=== PATIENT | male | born 1990 | race Caucasian/White ===

== ENCOUNTER 2019-05-18 10:27 | Inpatient (IN) | payer MEDICAID, OTHER, SELFPAY ==
[~2019-05-18] VITALS: Ht 185.4 cm; Wt 111.4 kg
[2019-05-18 11:30] LABS: HEMATOCRIT 49.6 % (42.0-52.0); HEMOGLOBIN 16.9 g/dl (13.5-17.5); MEAN CORPUSCULAR HEMOGLOBIN 29.1 pg (27.0-33.0); MEAN CORPUSCULAR HGB CONC 34.1 g/dl (32.0-36.5); MEAN CORPUSCULAR VOLUME 85.5 fl (80.0-96.0); PLATELET COUNT, AUTOMATED 305 10^3/uL (150-450); WHITE BLOOD COUNT 9.4 10^3/uL (4.0-10.0)
[2019-05-18 11:57] LABS: AMPHETAMINES LEVEL URINE NEGATIVE (NEGATIVE); BARBITURATES URINE NEGATIVE (NEGATIVE); BENZODIAZEPINES URINE NEGATIVE (NEGATIVE); CANNABINOIDS URINE NEGATIVE (NEGATIVE); COCAINE METABOLITE URINE NEGATIVE (NEGATIVE); METHADONE URINE NEGATIVE (NEGATIVE); OPIATES URINE NEGATIVE (NEGATIVE); PHENCYCLIDINE URINE NEGATIVE (NEGATIVE)
[2019-05-18 12:17] LABS: ACETAMINOPHEN LEVEL < 2.0 UG/ML (10.0-30.0); ALBUMIN 4.7 GM/DL (3.2-5.2); ALT/SGPT 25 U/L (12-78); BILIRUBIN,DIRECT 0.2 MG/DL (0.0-0.2); BILIRUBIN,TOTAL 1.2 MG/DL (0.2-1.0); BLOOD UREA NITROGEN 13 MG/DL (7-18); CALCIUM LEVEL 9.6 MG/DL (8.5-10.1); CARBON DIOXIDE LEVEL 27 MEQ/L (21-32); CHLORIDE LEVEL 105 MEQ/L (98-107); CREATININE FOR GFR 0.83 MG/DL (0.70-1.30); ETHYL ALCOHOL (ETHANOL) < 0.003 % (0.000-0.010); GLOMERULAR FILTRATION RATE > 60.0 (>60); GLUCOSE, FASTING 99 MG/DL (70-100); POTASSIUM SERUM 4.1 MEQ/L (3.5-5.1); SALICYLATE LEVEL 2.5 MG/DL (5.0-30.0); SODIUM LEVEL 139 MEQ/L (136-145); THYROID STIMULATING HORMONE 0.853 uIU/ML (0.358-3.740); TOTAL PROTEIN 7.7 GM/DL (6.4-8.2)
[2019-05-19] MEDS ORDERED: traZODone 50 MG TAB PO PRN (16:45)
[2019-05-19] MEDS ORDERED: MOM 30ML SUSPENSION UDC PO PRN (16:45)
[2019-05-19] MEDS ORDERED: ACETAMINOPHEN TAB 650MG DOSE (2X325MG) PO PRN (16:45)
[2019-05-19] MEDS ORDERED: MAALOX 30 ML SUSP *UDC PO PRN (16:45)
--- NOTE | 2019-05-19 16:57 | ECGEPIP ---
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
[2019-05-19] MEDS: NICOTINE 21MG/24HR 1 EA TRANSDERMAL TD SCH (18:24)
[2019-05-20 07:09] VITALS: BP 121/77
[2019-05-20] MEDS: NICOTINE 21MG/24HR 1 EA TRANSDERMAL TD SCH (08:50)
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
[2019-05-20 17:23] VITALS: BP 116/71
[2019-05-20] MEDS: VENLAFAXINE **XR** 37.5 MG CAPSULE PO SCH (17:35)
--- NOTE | 2019-05-20 19:14 | HPEPDOC ---
General Date of Admission May 19, 2019 at 16:33 Date of Service: May 20, 2019 Chief Complaint The patient is a 28-year-old male admitted with a reason for visit of Unspecified Depressive Disorder. Source: Patient Exam Limitations: No limitations Timing/Duration: Unsure Severity: Mild Associated Symptoms: Unobtainable History of Present Illness This is a 28-year-old male who has been admitted to the inpatient mental health unit for depression. This sba underwriter's conducting a medical evaluation. Patient denies any medical problems. He does have a history of chronic intermittent diarrhea accompanied by bloating. At times he does have blood with his stools. He has had hemorrhoids in the past. An anal fissure in the past. He does not have any nausea, vomiting. He also does not have any indigestion or reflux symp toms. Home Medications No Active Prescriptions or Reported Meds Allergies Coded Allergies: No Known Drug Allergies (Verified Allergy, Unknown, 05/18/19) Past Medical History Medical History Gastroesophageal reflux disease, arthritis Surgical History Arthroscopic knee surgery Family History Significant Family History: Diabetes Also arthritis, likely rheumatoid, in multiple family members Social History * Smoker: current smoker Alcohol: Denies Drugs: prescription drugs (Vicodin) Psychosocial History: Depression Works in [employer] Review of Systems Other systems 10 system review is otherwise negative except as stated in the HPI. Physical Examination General Exam: Positive: Alert, Cooperative Eye Exam: Positive: PERRLA, Conjunctiva & lids normal ENT Exam: Positive: Atraumatic, Mucous membr. moist/pink, Pharynx Normal, Nares Patent, Other ENT (patient has a tongue piercing) Neck Exam: Positive: Supple; Negative: JVD, thyromegaly Chest Exam: Positive: Clear to auscultation Heart Exam: Positive: Rate Normal, Regular Rhythm, Normal S1, Normal S2; Negative: Murmurs, Rubs Abdomen Exam: Positive: Normal bowel sounds Extremity Exam: Positive: Normal pulses; Negative: Clubbing, Cyanosis, Edema Skin Exam: Positive: Nl turgor and temperature Neuro Exam: Positive: Normal Gait, Normal Speech, Cranial Nerves 3-12 NL, Reflexes 2+ Psych Exam: Positive: Oriented x 3 (cooperative) Vital Signs Vital Signs Date Time Temp Pulse Resp B/P (MAP) Pulse Ox O2 Delivery O2 Flow Rate FiO2 05/20/19 17:23 99.0 80 16 116/71 (86) 05/19/19 15:56 100 Room Air Assessment/Plan This is a 28-year-old male admitted to the mental health unit for depression. He also has underlying history of substance abuse in the form of Vicodin. Pro- medical standpoint. He has had GERD in the past and has intermittent episodes of diarrhea with blood to his stools. I will treat him with a proton inhibitor. We also suggested at discharge that he be connected with a primary care provider for referral to a dredge operator for evaluation by colonoscopy. Otherwise, there are no current acute clinical concerns and we will sign off for now. Please do not hesitate to contact us should acute issues arise. Plan / VTE VTE Prophylaxis Ordered?: No (the patient is fully independently ambulatory) Plan Diet: Continue Current Activity: Continue Current Anticipated Discharge: Home ZABRINA SANCHEZ MD May 20, 2019 19:14
[2019-05-21 06:47] VITALS: BP 125/60
[2019-05-21] MEDS: VENLAFAXINE **XR** 37.5 MG CAPSULE PO SCH (08:24)
[2019-05-21] MEDS: PANTOPRAZOLE 40MG TAB (PROTONIX) PO SCH (08:24)
[2019-05-21] MEDS: NICOTINE 21MG/24HR 1 EA TRANSDERMAL TD SCH (08:25)
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
[2019-05-21 18:09] VITALS: BP 133/66
[2019-05-21] MEDS: RAMELTEON 8 MG TAB (ROZEREM) PO PRN (20:50)
[2019-05-22 06:06] VITALS: BP 119/78
[2019-05-22] MEDS: VENLAFAXINE **XR** 37.5 MG CAPSULE PO SCH (08:33)
[2019-05-22] MEDS: PANTOPRAZOLE 40MG TAB (PROTONIX) PO SCH (08:33)
[2019-05-22] MEDS: NICOTINE 21MG/24HR 1 EA TRANSDERMAL TD SCH (08:33)
[2019-05-22 09:59] VITALS: BP 119/78
[2019-05-22 16:20] VITALS: BP 135/67
[2019-05-22 16:21] VITALS: BP 135/67
[2019-05-22] MEDS: RAMELTEON 8 MG TAB (ROZEREM) PO PRN (20:30)
--- NOTE | 2019-05-22 21:42 | MHIPN ---
DATE: 05/22/2019 The patient today states, "I am doing a lot better." He is denying suicidal ideation. MENTAL STATUS EXAMINATION: This patient is alert and oriented times three. He is verbally spontaneous. No formal thought disorder noted. Eye contact is good. Mood is "a lot better." Affect is full range and appropriate. He is not psychotic, suicidal or homicidal. Concentration and memory are good. Insight and judgment fair. DIAGNOSES: 1. Unspecified trauma, stressor related disorder. 2. Rule out substance induced. 3. Opiate use disorder, severe. 4. Alcohol use disorder, unspecified. 5. Tobacco use disorder, moderate. TREATMENT PLAN: At this point, we will continue to further evaluate for further elevation and stabilization of his mood and for continued resolution of any suicidal ideation.
[2019-05-23 06:41] VITALS: BP 117/64
[2019-05-23] MEDS: NICOTINE 21MG/24HR 1 EA TRANSDERMAL TD SCH (08:18)
[2019-05-23] MEDS: VENLAFAXINE **XR** 37.5 MG CAPSULE PO SCH (08:19)
[2019-05-23] MEDS: PANTOPRAZOLE 40MG TAB (PROTONIX) PO SCH (08:19)
[2019-05-23 16:32] VITALS: BP 124/59
--- NOTE | 2019-05-23 16:41 | MHIPN ---
DATE: 05/23/2019 The patient today states that he is continues to feel better. He slept even better last night. He feels like he has more energy. He continues to have a lot more positive thoughts about his future. MENTAL STATUS EXAMINATION: He is alert and oriented times three. He is pleasant, cooperative, verbally spontaneous. Eye contact is good. Mood is good. Affect is full range and appropriate. He is not psychotic, suicidal or homicidal. Concentration is fair. Memory intact. Insight and judgment good. DIAGNOSES: 1. Unspecified trauma/stressor related disorder. 2. Rule out substance induced depression. 3. Opiate use disorder, severe. 4. Alcohol use disorder, unspecified. TREATMENT PLAN: At this point, we will continue to monitor the patient for continued resolution of suicidal ideation and continued elevation and stabilization of his mood.
[2019-05-23] MEDS: RAMELTEON 8 MG TAB (ROZEREM) PO PRN (20:40)
[2019-05-24 06:39] VITALS: BP 110/69
[2019-05-24] MEDS: PANTOPRAZOLE 40MG TAB (PROTONIX) PO SCH (08:23)
[2019-05-24] MEDS: VENLAFAXINE **XR** 37.5 MG CAPSULE PO SCH (08:23)
[2019-05-24] MEDS: NICOTINE 21MG/24HR 1 EA TRANSDERMAL TD SCH (08:24)
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
[2019-05-24] MEDS ORDERED: PILL CUTTER 1 EACH XX PRN (11:45)
[2019-05-24] MEDS ORDERED: NALTREXONE 50 MG TAB PO ONE (11:45)
[2019-05-24 15:40] VITALS: BP 112/68
[2019-05-24] MEDS: RAMELTEON 8 MG TAB (ROZEREM) PO PRN (21:29)
[2019-05-25 07:00] VITALS: BP 122/63
[2019-05-25 07:31] LABS: ALBUMIN 4.2 GM/DL (3.2-5.2); ALT/SGPT 22 U/L (12-78); BILIRUBIN,TOTAL 0.5 MG/DL (0.2-1.0); BLOOD UREA NITROGEN 14 MG/DL (7-18); CALCIUM LEVEL 9.6 MG/DL (8.5-10.1); CARBON DIOXIDE LEVEL 28 MEQ/L (21-32); CHLORIDE LEVEL 104 MEQ/L (98-107); CREATININE FOR GFR 0.76 MG/DL (0.70-1.30); GLOMERULAR FILTRATION RATE > 60.0 (>60); GLUCOSE, FASTING 88 MG/DL (70-100); POTASSIUM SERUM 4.4 MEQ/L (3.5-5.1); SODIUM LEVEL 140 MEQ/L (136-145); TOTAL PROTEIN 7.1 GM/DL (6.4-8.2)
[2019-05-25] MEDS: PANTOPRAZOLE 40MG TAB (PROTONIX) PO SCH (08:18)
[2019-05-25] MEDS: NICOTINE 21MG/24HR 1 EA TRANSDERMAL TD SCH (08:19)
[2019-05-25] MEDS: VENLAFAXINE **XR** 37.5 MG CAPSULE PO SCH (08:19)
[2019-05-25] MEDS ORDERED: NALTREXONE 50 MG TAB PO SCH (09:00)
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
[2019-05-25] MEDS ORDERED: VENL75CA2 PO (10:42)
[2019-05-25] MEDS ORDERED: NICO21PAT TD (10:42)
[2019-05-25] MEDS ORDERED: NALT50TA4 PO (10:42)
== END 2019-05-25 12:00 | disposition home or self-care (01) | DRG 755 ==
LOC: M ED 10:27 → M ED INP 05-19 16:33 → M PSY 05-19 17:53
PROVIDERS: ADMIT Psychiatry & Neurology Addiction Medicine; ATTEND Psychiatry & Neurology Addiction Medicine
DX: F43.9 Reaction to severe stress, unspecified (principal); F11.20 Opioid dependence, uncomplicated; R45.851 Suicidal ideations; F10.10 Alcohol abuse, uncomplicated; F17.200 Nicotine dependence, unspecified, uncomplicated; Z62.810 Personal history of physical and sexual abuse in childhood; Z62.811 Personal history of psychological abuse in childhood; K21.9 Gastro-esophageal reflux disease without esophagitis; M19.90 Unspecified osteoarthritis, unspecified site; Z81.8 Family history of other mental and behavioral disorders; Z81.4 Family history of other substance abuse and dependence